=== PATIENT | female | born 1960 | race Caucasian/White ===

== ENCOUNTER 2016-03-28 15:46 | Observation (INO) | payer BC ==
[~2016-03-28] VITALS: Ht 165.1 cm; Wt 74.9 kg
[~2016-03-28 15:46] MED LIST: ADVAIR DISKU1 INH; ALBUTEROL SULFATE; AZITHROMYCIN250 MG PO; CEPHALEXIN500 MG PO; PROAIR HFA IN
--- NOTE | 2016-03-28 16:41 | DIAGNOSTIC IMAGING REPORT ---
PROCEDURE: XR CHEST 1 VIEW INDICATION: SHORTNESS OF BREATH TECHNIQUE: Portable AP view 04:10 p.m. COMPARISON: Chest 12/06/2015 and 02/23/2015 FINDINGS: There is mild chronic parenchymal scarring at the lung bases. Lungs otherwise clear. Heart and mediastinum are normal. Thorax is normal. IMPRESSION: 1. Negative chest.
--- NOTE | 2016-03-28 17:38 | ED ORDER SUMMARY ---
..... Patient: NNAMDI BILLINGSLEY OrderSheet [facility] VisitID: [id number] [place] [address] 55y, F Registration Date/Time: 03/28/2016 ORDER SHEET Weight: 77.1 kg (stated) Allergies: Allarest GENERAL ORDERS: Chest 1V Urgent (16:03 03/28/2016 EKoroleva P.A.-C) (Ack 16:25 RKaruga) (16:40 SReitz R.N.) Blood Culture (No) (N/A) Urgent (16:03 03/28/2016 EKoroleva P.A.-C) (Ack 16:26 RKaruga) (16:40 SReitz R.N.) Cardiac Panel Stat (16:04 03/28/2016 EKoroleva P.A.-C) (Ack 16:26 RKaruga) (16:40 SReitz R.N.) PCT (Procalcitonin) Urgent (16:04 03/28/2016 EKoroleva P.A.-C) (Ack 16:26 RKaruga) (16:40 SReitz R.N.) Lactate, Serum Urgent (16:04 03/28/2016 EKoroleva P.A.-C) (Ack 16:26 RKaruga) (16:44 SReitz R.N.) Belt Operator (Continuous) (16:04 03/28/2016 EKoroleva P.A.-C) (16:06 SReitz R.N.) Oxygen (4 L/min) (NC) (92-95%) (16:04 03/28/2016 EKoroleva P.A.-C) (16:06 SReitz R.N.) EKG - ER Stat (16:04 03/28/2016 EKoroleva P.A.-C) (16:21 SReitz R.N.) Rapid Influenza Screen (Nasal Pharyngeal) (n) Urgent (16:04 03/28/2016 EKoroleva P.A.-C) (16:06 SReitz R.N.) ABG (G) Urgent (16:42 03/28/2016 EKoroleva P.A.-C) (Ack 16:53 RKaruga) (17:17 RKaruga) MEDICATION ORDERS: Tylenol PO 1,000 mg (NOW) (16:14 03/28/2016 EKoroleva P.A.-C) (16:44 SReitz R.N.) DuoNeb Neb Tx 1 unit dose (NOW) (16:14 03/28/2016 EKoroleva P.A.-C) (16:22 RMcCarson) Albuterol Neb Tx 2.5 mg (NOW) (16:14 03/28/2016 EKoroleva P.A.-C) (16:22 RMcCarson) Ceftriaxone IM 250 mg (NOW) (18:18 03/28/2016 EKoroleva P.A.-C) (Ack 18:24 SReitz R.N.) (Cancelled: Other18:24 SReitz R.N.) Doxycycline Hyclate PO 100 mg (NOW) (18:18 03/28/2016 EKoroleva P.A.-C) (Ack 18:24 SReitz R.N.) (Cancelled: Other18:24 SReitz R.N.) IV FLUIDS: IV Saline Lock (16:04 03/28/2016 EKoroleva P.A.-C) (Ack 16:41 SReitz R.N.) IV NS : initial bolus 500 mL (1000 mL/hr), then 100 mL/hr for X1 (NOW); Reid (17:31 03/28/2016 EKoroleva P.A.-C) (17:33 SReitz R.N.) ORDER SHEET NOTES: [Electronically signed by Madison Gamino PDonA.-C (19:26 03/28/2016)] [Electronically signed by Maki Alvarado R.N. (00:00 03/29/2016)] [Electronically locked/signed by Maki Alvarado R.N. (00:00 03/29/2016)]
--- NOTE | 2016-03-28 17:38 | ED NURSING NOTES ---
Clinical Report - Nurses [facility] [address] 03/28/2016 15:47 Patient: NNAMDI BILLINGSLEY TRIAGE Triage time 15:52. Acuity: LEVEL 3. Chief Complaint: COUGH and FEVER and (pt states, " I think I have pneumonia, I have had it many times."). Alert. No acute distress. IVON COMA SCORE: [place] Coma Scale: 15- eyes open spontaneously (4); best verbal response- oriented x 4 (5); best motor response- obeys commands (6). --16:05 Maki Alvarado R.N. 15:51 03/28/16. BP: 145/62. HR: 135. RR: 24. O2 saturation: 68% on room air. Temp: 100.4 F. Pain level now 09/15. --16:05 Maki Alvarado R.N. Weight: 77.1 kg stated. Height/Length: 65 inches Per Patient. BMI: 28.3. --15:53 Maki Alvarado R.N. Medications Womens Multi Vitamin & Mineral Oral. --16:04 Maki Alvarado R.N. Singular. --16:04 Maki Alvarado R.N. ProAir HFA Inhalation. --16:04 Maki Alvarado R.N. Allergies Allarest. --16:04 Maki Alvarado R.N. History Arrived by private vehicle. Historian: patient. Accompanied by family. Primary physician (). Onset. (4 days ago continues to get worse). 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 PAST MEDICAL HX: Immunizations: up-to-date. SOCIAL HX: Current every day heavy tobacco smoker (cigarette)- less than 1 pack per day. No alcohol use or drug use. She has not traveled outside the [place] ABUSE ASSESSMENT: Abuse assessment: The patient was asked "Do you feel safe in your home?" and "Has anyone hurt you or threatened to hurt you?". No report of abuse. NUTRITIONAL RISK ASSESSMENT: The nutritional risk assessment revealed no deficiencies. FUNCTIONAL ASSESSMENT: Functional assessment: no impairments noted. LEARNING NEEDS ASSESSMENT: The learning needs assessment revealed no barriers. --16:05 Maki Alvarado R.N. PROBLEMS: Pneumonia. Lung Disease. COPD - Chronic Obstructive Pulmonary Disease. Lifestyle / Substance Problems. Asthma. --15:59 Maki Alvarado R.N. ADDITIONAL SURGERIES: Hysterectomy. Tonsillectomy. --16:05 Maki Alvarado R.N. Interventions ID band on patient. Transported via wheelchair. --16:05 Maki Alvarado R.N. PHYSICAL ASSESSMENT To room via wheelchair. GENERAL / NEURO / PSYCH: Alert. Appears in no acute distress. HEENT: Voice within normal limits. RESPIRATORY: Mild respiratory distress. CVS: Cardiac rhythm: sinus tachycardia. Capillary refill less than 2 seconds. SKIN: Skin is pale. Skin is dry. Skin is cool. --16:01 Maki Alvarado R.N. NURSING PROGRESS NOTES 15:55. Oxygen administered by nasal cannula at 4 liters. property assessment monitor, pulse oximeter and NIBP monitor placed on patient; athletic monitor- Lead II; monitor alarms on. Patient gowned. Head of bed elevated. Two patient identifiers checked. Call light placed in reach. Side rails up x 2. Bed placed in lowest position. Brakes of bed on. Patient ready for evaluation- chart flagged. --16:01 Maki Alvarado R.N. 16:03 03/28/2016 Site #1 started via IV in the left antecubital space with an 20g angiocath, with aseptic technique and good blood return; one attempt. Blood drawn: rainbow set and cultures. Labeled in the presence of the patient and sent to the lab. Saline lock flushed with 10 mL saline (accessed by PANDA Edgar). --16:03 Maki Alvarado R.N. ( RT notified for breathing treatment.). --16:03 Maki Alvarado R.N. 16:05 03/28/16. O2 saturation: 93% on nasal cannula at 6 liters/minute. --16:06 Maki Alvarado R.N. 16:22 03/28/2016 Duoneb (Ipratropium-Albuterol) Neb TX Nebulizer 1 unit dose given. --16:22 Saranya Armenta 16:22 03/28/2016 Albuterol Neb TX Nebulizer 1 unit dose given. --16:22 Saranya Armenta 16:44 03/28/2016 Tylenol (Acetaminophen) PO 1000 mg given. Allergies verified and confirmed 5 rights. --16:44 Maki Alvarado R.N. 16:45 03/28/16. BP: 145/62. HR: 128. RR: 18. O2 saturation: 94%. --16:45 Maki Alvarado R.N. Reassessment after medication administered. She has had no adverse reaction. Overall patient status- she states feels better. --16:45 Maki Alvarado R.N. Patient ID band checked for patient name, birthdate and medical record number: patient confirmed. Blood samples drawn from the left antecubital space peripheral IV site by nurse per protocol ; labeled in presence of the patient and sent to lab: gaspar top. Initial blood discarded and additional blood sent to lab. Line flushed with 10 mL normal saline post blood draw. --16:45 Maki Alvarado R.N. 16:57 03/28/16. BP: 125/53. --16:57 Maki Alvarado R.N. ( RT at the bedside for ABG draw). --16:57 Maki Alvarado R.N. 17:33 03/28/2016 Started bag #1 1000 mL IV Fluids IV NS (Saline); at 1000 mL/hr over 30 second(s) via site #1 via IV pump. Allergies verified and confirmed 5 rights. IV patency established. IV site checked: no pain, redness, or swelling. IV flushed thoroughly pre- and post-medication administration. --17:33 Maki Alvarado R.N. ( attempt to call report: [place] RN unavailable at this time will call back.). --18:55 Maki Alvarado R.N. EKG time: (3596). EKG was ordered, performed by a tech and shown to the ED physician. --23:43 Maki Alvarado R.N. DISPOSITION / DISCHARGE Admitted to Acute Care. Transported via stretcher by [employer] with O2. Report was given to a nurse via a phone call. Report included patient's care, treatment, medications, reviewed medication reconcilliation, and condition (including any recent changes or anticipated changes). All questions were answered. Patient's personal items; items were placed in belongings bag, given to the patient and transported with the patient. --19:51 Maki Alvarado R.N. 19:52 03/28/16. BP: 115/54. HR: 107 (regular and tachycardic). RR: 20. O2 saturation: 95%. Temp: 98.6 F. Pain level now: 05/16. --19:53 Maki Alvarado R.N. 19:53 03/28/2016 Site #[address] upon admission; patent, no pain and no signs of infiltration. Flushed with 10 mL saline; flushes easily. --19:53 Maki Alvarado R.N. Locked/Released at 03/29/2016 0:00 by Maki Alvarado R.N.
--- NOTE | 2016-03-28 17:38 | ED ORDER SUMMARY ---
..... Patient: NNAMDI BILLINGSLEY OrderSheet [facility] VisitID: [id number] [place] [address] 55y, F Registration Date/Time: 03/28/2016 ORDER SHEET Weight: 77.1 kg (stated) Allergies: Allarest GENERAL ORDERS: Chest 1V Urgent (16:03 03/28/2016 EKoroleva P.A.-C) (Ack 16:25 RKaruga) (16:40 SReitz R.N.) Blood Culture (No) (N/A) Urgent (16:03 03/28/2016 EKoroleva P.A.-C) (Ack 16:26 RKaruga) (16:40 SReitz R.N.) Cardiac Panel Stat (16:04 03/28/2016 EKoroleva P.A.-C) (Ack 16:26 RKaruga) (16:40 SReitz R.N.) PCT (Procalcitonin) Urgent (16:04 03/28/2016 EKoroleva P.A.-C) (Ack 16:26 RKaruga) (16:40 SReitz R.N.) Lactate, Serum Urgent (16:04 03/28/2016 EKoroleva P.A.-C) (Ack 16:26 RKaruga) (16:44 SReitz R.N.) Process Control Technician (Continuous) (16:04 03/28/2016 EKoroleva P.A.-C) (16:06 SReitz R.N.) Oxygen (4 L/min) (NC) (92-95%) (16:04 03/28/2016 EKoroleva P.A.-C) (16:06 SReitz R.N.) EKG - ER Stat (16:04 03/28/2016 EKoroleva P.A.-C) (16:21 SReitz R.N.) Rapid Influenza Screen (Nasal Pharyngeal) (n) Urgent (16:04 03/28/2016 EKoroleva P.A.-C) (16:06 SReitz R.N.) ABG (G) Urgent (16:42 03/28/2016 EKoroleva P.A.-C) (Ack 16:53 RKaruga) (17:17 RKaruga) MEDICATION ORDERS: Tylenol PO 1,000 mg (NOW) (16:14 03/28/2016 EKoroleva P.A.-C) (16:44 SReitz R.N.) DuoNeb Neb Tx 1 unit dose (NOW) (16:14 03/28/2016 EKoroleva P.A.-C) (16:22 RMcCarson) Albuterol Neb Tx 2.5 mg (NOW) (16:14 03/28/2016 EKoroleva P.A.-C) (16:22 RMcCarson) Ceftriaxone IM 250 mg (NOW) (18:18 03/28/2016 EKoroleva P.A.-C) (Ack 18:24 SReitz R.N.) (Cancelled: Other18:24 SReitz R.N.) Doxycycline Hyclate PO 100 mg (NOW) (18:18 03/28/2016 EKoroleva P.A.-C) (Ack 18:24 SReitz R.N.) (Cancelled: Other18:24 SReitz R.N.) IV FLUIDS: IV Saline Lock (16:04 03/28/2016 EKoroleva P.A.-C) (Ack 16:41 SReitz R.N.) IV NS : initial bolus 500 mL (1000 mL/hr), then 100 mL/hr for X1 (NOW); Reid (17:31 03/28/2016 EKoroleva P.A.-C) (17:33 SReitz R.N.) ORDER SHEET NOTES: [Electronically signed by Madison Gamino PDonA.-C (19:26 03/28/2016)] [Electronically signed by Maki Alvarado R.N. (00:00 03/29/2016)] [Electronically locked/signed by Maki Alvaraod R.N. (00:00 03/29/2016)]
--- NOTE | 2016-03-28 17:38 | ED NURSING NOTES ---
Clinical Report - Nurses [facility] [place] [address] 03/28/2016 15:47 Patient: NNAMDI BILLINGSLEY TRIAGE Triage time 15:52. Acuity: LEVEL 3. Chief Complaint: COUGH and FEVER and (pt states, " I think I have pneumonia, I have had it many times."). Alert. No acute distress. IVON COMA SCORE: [place] Coma Scale: 15- eyes open spontaneously (4); best verbal response- oriented x 4 (5); best motor response- obeys commands (6). --16:05 Maki Alvarado R.N. 15:51 03/28/16. BP: 145/62. HR: 135. RR: 24. O2 saturation: 68% on room air. Temp: 100.4 F. Pain level now 09/15. --16:05 Maki Alvarado R.N. Weight: 77.1 kg stated. Height/Length: 65 inches Per Patient. BMI: 28.3. --15:53 Maki Alvarado R.N. Medications Womens Multi Vitamin & Mineral Oral. --16:04 Maki Alvarado R.N. Singular. --16:04 Maki Alvarado R.N. ProAir HFA Inhalation. --16:04 Maki Alvarado R.N. Allergies Allarest. --16:04 Maki Alvarado R.N. History Arrived by private vehicle. Historian: patient. Accompanied by family. Primary physician (). Onset. (4 days ago continues to get worse). 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 PAST MEDICAL HX: Immunizations: up-to-date. SOCIAL HX: Current every day heavy tobacco smoker (cigarette)- less than 1 pack per day. No alcohol use or drug use. She has not traveled outside the [place] ABUSE ASSESSMENT: Abuse assessment: The patient was asked "Do you feel safe in your home?" and "Has anyone hurt you or threatened to hurt you?". No report of abuse. NUTRITIONAL RISK ASSESSMENT: The nutritional risk assessment revealed no deficiencies. FUNCTIONAL ASSESSMENT: Functional assessment: no impairments noted. LEARNING NEEDS ASSESSMENT: The learning needs assessment revealed no barriers. --16:05 Maki Alvarado R.N. PROBLEMS: Pneumonia. Lung Disease. COPD - Chronic Obstructive Pulmonary Disease. Lifestyle / Substance Problems. Asthma. --15:59 Maki Alvarado R.N. ADDITIONAL SURGERIES: Hysterectomy. Tonsillectomy. --16:05 Maki Alvarado R.N. Interventions ID band on patient. Transported via wheelchair. --16:05 Maki Alvarado R.N. PHYSICAL ASSESSMENT To room via wheelchair. GENERAL / NEURO / PSYCH: Alert. Appears in no acute distress. HEENT: Voice within normal limits. RESPIRATORY: Mild respiratory distress. CVS: Cardiac rhythm: sinus tachycardia. Capillary refill less than 2 seconds. SKIN: Skin is pale. Skin is dry. Skin is cool. --16:01 Maki Alvarado R.N. NURSING PROGRESS NOTES 15:55. Oxygen administered by nasal cannula at 4 liters. teletypesetter monitor, pulse oximeter and NIBP monitor placed on patient; teletypesetter monitor- Lead II; monitor alarms on. Patient gowned. Head of bed elevated. Two patient identifiers checked. Call light placed in reach. Side rails up x 2. Bed placed in lowest position. Brakes of bed on. Patient ready for evaluation- chart flagged. --16:01 Maki Alvarado R.N. 16:03 03/28/2016 Site #1 started via IV in the left antecubital space with an 20g angiocath, with aseptic technique and good blood return; one attempt. Blood drawn: rainbow set and cultures. Labeled in the presence of the patient and sent to the lab. Saline lock flushed with 10 mL saline (accessed by PANDA Edgar). --16:03 Maki Alvarado R.N. ( RT notified for breathing treatment.). --16:03 Maki Alvarado R.N. 16:05 03/28/16. O2 saturation: 93% on nasal cannula at 6 liters/minute. --16:06 Maki Alvarado R.N. 16:22 03/28/2016 Duoneb (Ipratropium-Albuterol) Neb TX Nebulizer 1 unit dose given. --16:22 Saranya Armenta 16:22 03/28/2016 Albuterol Neb TX Nebulizer 1 unit dose given. --16:22 Saranya Armenta 16:44 03/28/2016 Tylenol (Acetaminophen) PO 1000 mg given. Allergies verified and confirmed 5 rights. --16:44 Maki Alvarado R.N. 16:45 03/28/16. BP: 145/62. HR: 128. RR: 18. O2 saturation: 94%. --16:45 Maki Alvarado R.N. Reassessment after medication administered. She has had no adverse reaction. Overall patient status- she states feels better. --16:45 Maki Alvarado R.N. Patient ID band checked for patient name, birthdate and medical record number: patient confirmed. Blood samples drawn from the left antecubital space peripheral IV site by nurse per protocol ; labeled in presence of the patient and sent to lab: gaspar top. Initial blood discarded and additional blood sent to lab. Line flushed with 10 mL normal saline post blood draw. --16:45 Maki Alvarado R.N. 16:57 03/28/16. BP: 125/53. --16:57 Maki Alvarado R.N. ( RT at the bedside for ABG draw). --16:57 Maki Alvarado R.N. 17:33 03/28/2016 Started bag #1 1000 mL IV Fluids IV NS (Saline); at 1000 mL/hr over 30 second(s) via site #1 via IV pump. Allergies verified and confirmed 5 rights. IV patency established. IV site checked: no pain, redness, or swelling. IV flushed thoroughly pre- and post-medication administration. --17:33 Maki Alvarado R.N. ( attempt to call report: [place] RN unavailable at this time will call back.). --18:55 Maki Alvarado R.N. EKG time: (9926). EKG was ordered, performed by a tech and shown to the ED physician. --23:43 Maki Alvarado R.N. DISPOSITION / DISCHARGE Admitted to Acute Care. Transported via stretcher by [employer] with O2. Report was given to a nurse via a phone call. Report included patient's care, treatment, medications, reviewed medication reconcilliation, and condition (including any recent changes or anticipated changes). All questions were answered. Patient's personal items; items were placed in belongings bag, given to the patient and transported with the patient. --19:51 Maki Alvarado R.N. 19:52 03/28/16. BP: 115/54. HR: 107 (regular and tachycardic). RR: 20. O2 saturation: 95%. Temp: 98.6 F. Pain level now: 05/16. --19:53 Maki Alvarado R.N. 19:53 03/28/2016 Site #[address] upon admission; patent, no pain and no signs of infiltration. Flushed with 10 mL saline; flushes easily. --19:53 Maki Alvarado R.N. Locked/Released at 03/29/2016 0:00 by Maki Alvarado R.N.
--- NOTE | 2016-03-28 17:38 | ED CLINICAL REPORT ---
Clinical Report - Physicians/Mid Levels [facility] [address] [place] [address] 03/28/2016 15:47 Patient: NNAMDI BILLINGSLEY Time Seen: 16:14 Mar 28 2016. Arrived- By private vehicle. HISTORY OF PRESENT ILLNESS Chief Complaint: HISTORY OF CHRONIC OBSTRUCTIVE PULMONARY DISEASE. This started just prior to arrival and is still present. The dyspnea is described as mild. The patient has had a cough and fever. No sputum production or dizziness. She has had foot swelling (not new). (Patient reports history of severe asthma, smoking, on home oxygen at night only, 2 L over the last 3-4 days has been having worsening of her cough, nonproductive, fevers). Similar symptoms previously: REVIEW OF SYSTEMS The patient has not had weight loss. No muscle aches, nasal discharge, skin rash or enlarged lymph nodes. All systems otherwise negative, except as recorded above. PAST HISTORY Asthma out of advair. Problems: Pneumonia. Lung Disease. COPD - Chronic Obstructive Pulmonary Disease. Lifestyle / Substance Problems. Additional Surgeries: Hysterectomy. Tonsillectomy. Medications: ProAir HFA Inhalation. Singular. Womens Multi Vitamin & Mineral Oral. Allergies: Allarest. SOCIAL HISTORY Smoker- current status unknown. No alcohol use or drug use. ADDITIONAL NOTES The nursing notes have been reviewed. PHYSICAL EXAM Vital Signs: 03/28/2016 15:51 BP: 145/62. HR: 135. RR: 24. O2 saturation: 68%. Temp: 100.4 F. Appearance: Alert. No acute distress. ENT: Nose normal. Pharynx normal. Neck: Normal inspection. No jugular venous distention. CVS: Tachycardia. Heart sounds normal. Respiratory: Respiratory distress. Decreased air movement. Wheezing present. Back: Normal inspection. LABS, X-RAYS, AND EKG EKG: EKG time: (1616). No acute process. No acute ischemia. Rate: 120. Tachycardia. Normal P waves. Normal BANDAR. Normal QRS complex. Normal axis. sinsu tach with pac. Changes present when compared to prior EKG. (01/17, new pac). Chest X-ray: (IMPRESSION: 1. Negative chest. Electronically Final signed by:Calin Russell MD 03/28/2016 4:44:45 PM). Laboratory Tests: CBC w Diff: (TELMA: 03/28/2016 16:00) ( [facility] 03/28/2016 16:22) Final results Test Result Flag Units (Reference) WHITE BLOOD COUNT 10.1 K/uL (4.5-11.5) RED BLOOD COUNT 5.88 H M/uL (4.00-5.20) HEMOGLOBIN 16.0 gm/dL (12.0-16.0) HEMATOCRIT 50.5 H % (36.0-46.0) MEAN CELL VOLUME 86 fL (80-100) MEAN CORPUSCULAR HGB 27 pg (26-34) MEAN CORPUSCULAR HGB CONC 32 g/dL (31-37) RED CELL DISTRIBUTION WIDTH 16.5 H % (11.6-14.8) PLATELET COUNT 198 K/uL (150-400) NEUTROPHIL % 88.7 H % (50-75) LYMPH % 6.5 L % (25-40) MONO % 4.4 % (3-14) EOSINOPHIL % 0.2 % (0-4) BASOPHIL % 0.2 % (0-2) Lactate, Serum: (TELMA: 03/28/2016 16:50) ( [facility] 03/28/2016 17:27) Final results Test Result Flag Units (Reference) LACTIC ACID 1.0 mmol/L (0.4-2.0) [id number]: (TELMA: 03/28/2016 16:00) ( [facility] 03/28/2016 17:07) Final results Test Result Flag Units (Reference) PROCALCITONIN <0.5 ng/mL (0-0.5) PCT Concentration: Interpretation : Risk/option for action PCT <=0.5 ng/mL : Systemic : Low risk forinfection(sepsis): progression to severeis not likely. : systemic infection.Local bacterial : CAUTION-PCT levelsinfection is : below 0.5 ng/mL do notpossible. : exclude an infection,because localizedinfections (withoutsystemic signs) may beassociated with suchlow levels. If PCT ismeasured very earlyafter a bacterialchallenge (usually <6hours), these valuesmay still be low. Inthis case PCT shouldbe re-assessed 6-24hours later. PCT >0.5 and : Systemic infection: Moderate risk for<= 2 ng/mL : (sepsis) is : progression to severepossible, but : systemic infection.other conditions : The patient should beare known to : closely monitoredelevate PCT. : both clinically andby re-assessing PCTwithin 6-24 hours. PCT > 2 ng/mL : Systemic infection: High risk for(sepsis) is likely: progression to severeunless other : systemic infection.causes are known. : PCT >= 10 ng/mL : Important systemic: High likelihood ofinflammatory : severe sepsis orresponse, almost : septic shock.exclusively due to:severe bacterial :sepsis or septic :shock. : CHEM 13 PANEL: (TELMA: 03/28/2016 16:00) ( MsgRcvd 03/28/2016 17:49) Final results Test Result Flag Units (Reference) GLUCOSE 121 H mg/dL (70-110) BUN 8 mg/dL (7-18) CREATININE 0.8 mg/dL (0.6-1.3) Estimated GFR >60 mL/min Estimated GFR- >60 mL/min Note: Persistent reduction over 3 months in eGFR<60 mL/min/1.73 m2 defines CKD. Patients with eGFR values>=60 mL/min/1.73 m2 may also have CKD if evidence ofpersistent proteinuria. Additional information may be foundat www.kidney.org. SODIUM 136 mmol/L (136-145) POTASSIUM 4.2 mmol/L (3.5-5.1) CHLORIDE 96 L mmol/L (98-107) CARBON DIOXIDE 33 H mmol/L (21-32) CALCIUM 8.8 mg/dL (8.5-10.1) TOTAL PROTEIN 8.0 g/dL (6.4-8.2) ALBUMIN 3.4 g/dL (3.3-5.0) BILIRUBIN, TOTAL 0.5 mg/dL (0.0-1.0) ALKALINE PHOSPHATASE 83 U/L (46-116) AST (SGOT) 18 U/L (15-37) ALT (SGPT) 22 U/L (12-78) MAGNESIUM 2.0 mg/dL (1.8-2.4) CPK 129 U/L (24-260) TROPONIN I <0.05 ng/mL (0.00-1.5) TROPONIN REFERENCE RANGE:<0.1 NEGATIVE0.1-1.5 INDETERMINANT>1.5 POSITIVE ABG: (TELMA: 03/28/2016 16:42) ( MsgRcvd 03/28/2016 17:18) Final results Test Result Flag Units (Reference) FIO2 0.40 L % (20-101) ABG MODE OF DELIVERY NC MODIFIED ELZBIETA TEST POSITIVE? YES LITERS PER MIN. 5 L/MIN (0-20) ABG PATIENT RESP RATE 20 /MIN ARTERIAL BLOOD GAS SITE LR ARTERIAL BLOOD GAS pH 7.40 (7.35-7.45) ABG PCO2 54.6 H mmHg (35-45) ABG PO2 63.3 L mmHg (80.0-100.0) ABG BASE EXCESS 8.1 *H mmol/L (-6.0--6.0) ABG HCO3 34.0 *H mmol/L (20.0-26.0) ABG TCO2 35.7 *H mmol/L (24.0-30.0) ABG TxPvB1a 151.0 H mmHg (7.0-14.0) *NOTE: Normal rangeis based on aFIO2 of 21% ABG SAT O2 92.8 L % (95.1-100.0) ABG TOTAL HEMOGLOBIN 14.8 g/dL (12.0-16.0) ABG O2 HEMOGLOBIN 87.4 L % (95.0-100.0) ABG CARBOXYHEMOGLOBIN 5.8 H % (0.5-1.5) ABG METHEMOGLOBIN 0.0 L % (0.4-1.5) ABG RHEMOGLOBIN 6.8 % Rapid Influenza Screen: (TELMA: 03/28/2016 16:00) ( MsgRcvd 03/28/2016 16:40) Final results SPECIMEN DESCRIPTION: N Test Result Flag Units (Reference) RAPID INFLUENZA SCREEN DATE: 03/28/16 INFLUENZA A: NEGATIVE SCREEN FOR INFLUENZA A INFLUENZA B: NEGATIVE SCREEN FOR INFLUENZA B RAPID INFLUENZA NEGATIVE FOR "A" "B". . PROGRESS AND PROCEDURES Course of Care: Here in the ER patient with hypoxia upon arrival, does wear at home oxygen, however on the nature reports. She has continued to smoke. Patient here with diffuse wheezing. Patient with fever. Chest x-ray unremarkable, CBC G unremarkable, ABG unremarkable. The troponin and lactic acid are negative. He's discussed with Dr. Hu, who will admit the patient. Dr. Hu here in the ER at 1800 to see patient. 03/28/2016 17:46 Temp: 99.8 F. 03/28/2016 16:57 BP: 125/53. 03/28/2016 16:45 BP: 145/62. HR: 128. RR: 18. O2 saturation: 94%. 03/28/2016 16:05 O2 saturation: 93%. 03/28/2016 15:51 BP: 145/62. HR: 135. RR: 24. O2 saturation: 68%. Temp: 100.4 F. Patient is stable. Physical exam findings are improved. Symptoms better. Patient/family counseled. Disposition: Admitted. CLINICAL IMPRESSION Acute exacerbation of COPD. (Electronically signed by Madison Gamino P.A.-C 03/28/2016 19:26)
--- NOTE | 2016-03-28 18:40 | Progress Note ---
Subjective General Full note dictated: Ran out of asthma meds around 5 days ago. Couldn't get in for appt today when called in this am and so went to ER for SOB. Is sob, weak and now states will quit smoking. Has hypoxia and compensatd respiratory failure on her ABG Admit: O2 NC, asthma meds. ? d/c tomorrow.
--- NOTE | 2016-03-28 20:02 | HISTORY AND PHYSICAL ---
ADMITTED: 03/28/2016 CHIEF COMPLAINT: 1. Shortness of breath, asthma flare HISTORY OF PRESENT ILLNESS: The patient states that she ran out of her asthma medications about 5 days ago, started having increased shortness of breath and wheezing and could not breathe well, so she tried to get into an appointment today at the office, was able to do this and so went to the emergency department for further evaluation. In the emergency department, workup included checking for oxygen levels and chest x-ray. Chest x- ray was normal, and her oxygen levels were very low. A decision was made for admission and for observation and she is now on oxygen here and feeling better. MEDICAL/SURGICAL HISTORY: Past medical history: She has had chronic asthma, COPD issues. She normally has oxygen at home, but she only uses it at night. She has had tobacco use that is chronic, a cough that is chronic, and COPD issues as well. 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 MEDICATIONS: 1. Singulair 10 mg p.o. daily. 2. ProAir 2 puffs q.4 hours p.r.n. 3. Hydrochlorothiazide 25 mg p.o. daily. 4. Advair 250/50 one puff b.i.d. ALLERGIES: 1. CHANTIX. 2. FLOVENT. 3. ALIRESP. 4. LEVAQUIN. 5. SULFA. SOCIAL HISTORY: She is . She is employed, works at [employer]. She smokes every day, has quit off and on, usually is about 3/4 pack per day. Denies alcohol or drug use. FAMILY HISTORY: Aunt had colon cancer. She has multiple grandchildren with asthma. REVIEW OF SYSTEMS: She has been short of breath, weak. She is having some coughing. No fevers. No nausea, vomiting. She has had some issues of weakness. PHYSICAL EXAMINATION: GENERAL: She is an alert female who is talking in full sentences, is sitting up in no distress. VITAL SIGNS: Her blood pressure is 145/62, heart rate of 135, respirations 24, saturating 68% on room air, temperature 100.4, and pain was 7-10 scale with breathing. HEENT: Extraocular movements intact. Pupils equal, round, reactive to light. Oropharynx is with moist mucous membranes and dentures. NECK: Supple without lymphadenopathy. LUNGS: With coarse breath sounds bilaterally and some wheezes. HEART: Regular rate and rhythm. ABDOMEN: Soft, it is nontender, nondistended, and obese. GENITOURINARY: Deferred. RECTAL: Deferred. BREASTS: Deferred. NEUROLOGIC: Cranial nerves II-XII are intact. Strength and sensation are grossly intact. LAB/IMAGING: Her white count is 10.1, hematocrit of 50.5, platelets of 198,000. Comprehensive metabolic panel: Glucose 121, BUN of 8, creatinine 0.8, sodium 136 , potassium 4.2, chloride of 96, carbon dioxide 33, magnesium 2.0, calcium 8.8, total protein 8.0. Albumin 3.4, total bili 0.5, alk phos 83, AST of 18, ALT of 22. CPK 129. Troponin I less than 0.05. Procalcitonin less than 0.5. Flu screen was negative for influenza A and B. ABG: shows a pH of 7.40, pCO2 54.6, pO2 63. Her lactic acid is 1.0. Chest x-ray was no acute process. EKG: Shows tachycardia with nonspecific ST changes and artifact, sinus. IMPRESSION: 1. This is a 55-year-old female with longstanding tobacco use. 2. Respiratory failure with elevated pCO2 that is chronic and hypoxia that is likely chronic as she has a pH of 7.40. PLAN: She ran out of her asthma medications and she is now going to be restarted on those and treated with oxygen nasal cannula. We will monitor her. She is going to likely need oxygen 24 hours a day. She has got some laboratory abnormalities with the respiratory failure on the ABG, also with the elevated carbon dioxide level. Also, she has elevated hematocrit, which is likely polycythemia secondary to her chronic hypoxia and lung issues. The patient states she is going to quit smoking for real this time and that she is also going to be consistent with her medications and will be moving towards 24-hour a day oxygen. Anticipate that she will be improved and then ready for discharge in 1-2 days. She has oxygen at home and will start to wear it in the daytime as well and potentially night. May need further evaluation on sleep apnea in the future as she states that she has had normal oxygen in the daytime and low oxygen at night.
[2016-03-28 20:11] VITALS: BP 123/65
[2016-03-28] MEDS ORDERED: SINGULAIR10 M1 PO (21:43)
[2016-03-28] MEDS ORDERED: ADVAIR DISKU1 INH (21:43)
[2016-03-28] MEDS ORDERED: MULTIVITAMIN GUMMIES (21:46)
[2016-03-28] MEDS ORDERED: PROAIR HFA IN (21:49)
[2016-03-28] MEDS ORDERED: ABILIFY5 MG PO (21:50)
[2016-03-28 23:09] VITALS: BP 114/64
--- NOTE | 2016-03-29 00:01 | ED MAR SUMMARY ---
..... Medication Administration Record [facility] [address] [place] [address] Patient: NNAMDI BILLINGSLEY Visit ID: [id number] 55y, F Weight: 77.1 kg Height/Length: 65 in BMI: 28.3 ALLERGIES: Allarest Given 16:22 03/28/2016 Saranya Armenta, Medication Administered: DUONEB [NEB TX] (IPRATROPIUM-ALBUTEROL), Dose: 1 unit dose Nebulizer Neb TX. Medication Ordered: DuoNeb Neb Tx 1 unit dose (NOW). Given 16:22 03/28/2016 Saranya Armenta, Medication Administered: ALBUTEROL [NEB TX], Dose: 1 unit dose Nebulizer Neb TX. Medication Ordered: Albuterol Neb Tx 2.5 mg (NOW). Given 16:44 03/28/2016 Maki Alvarado R.N. Medication Administered: TYLENOL [PO] (ACETAMINOPHEN), Dose: 1000 mg PO. Medication Ordered: Tylenol PO 1,000 mg (NOW). Start 17:33 03/28/2016 Maki Alvarado, RDonNDon Medication Administered: IV NS (SALINE), Dose: IV Fluids over 30 second(s), Rate: 1000 mL/hr, Dispensed: 1000 mL bag, Site: [facility]. Medication Ordered: IV NS : initial bolus 500 mL (1000 mL/hr), then 100 mL/hr for X1 (NOW); Reid.
--- NOTE | 2016-03-29 00:01 | ED DISCHARGE INSTRUCTIONS ---
Patient: NNAMDI BILLINGSLEY General Instructions [facility] VisitID: [id number] [address] [place] [address] 55y, F Registration Date/Time: 03/28/2016 Acute exacerbation of COPD. (Electronically signed by Madison Gamino P.A.-C 03/28/2016 19:26)
--- NOTE | 2016-03-29 00:01 | ED DISCHARGE INSTRUCTIONS ---
Patient: NNAMDI BILLINGSLEY General Instructions [facility] VisitID: [id number] [address] [place] [address] 55y, F Registration Date/Time: 03/28/2016 Acute exacerbation of COPD. (Electronically signed by Madison Gamino P.A.-C 03/28/2016 19:26)
--- NOTE | 2016-03-29 00:01 | ED MAR SUMMARY ---
..... Medication Administration Record [facility] [address] [place] [address] Patient: NNAMDI BILLINGSLEY Visit ID: [id number] 55y, F Weight: 77.1 kg Height/Length: 65 in BMI: 28.3 ALLERGIES: Allarest Given 16:22 03/28/2016 Saranya Armenta, Medication Administered: DUONEB [NEB TX] (IPRATROPIUM-ALBUTEROL), Dose: 1 unit dose Nebulizer Neb TX. Medication Ordered: DuoNeb Neb Tx 1 unit dose (NOW). Given 16:22 03/28/2016 Saranya Armenta, Medication Administered: ALBUTEROL [NEB TX], Dose: 1 unit dose Nebulizer Neb TX. Medication Ordered: Albuterol Neb Tx 2.5 mg (NOW). Given 16:44 03/28/2016 Maki Alvarado R.N. Medication Administered: TYLENOL [PO] (ACETAMINOPHEN), Dose: 1000 mg PO. Medication Ordered: Tylenol PO 1,000 mg (NOW). Start 17:33 03/28/2016 Maki Alvarado, RDonNDon Medication Administered: IV NS (SALINE), Dose: IV Fluids over 30 second(s), Rate: 1000 mL/hr, Dispensed: 1000 mL bag, Site: #[facility]. Medication Ordered: IV NS : initial bolus 500 mL (1000 mL/hr), then 100 mL/hr for X1 (NOW); Reid.
--- NOTE | 2016-03-29 00:02 | ED MED RECONCILIATION SUMMARY ---
Patient: NNAMDI BILLINGSLEY Medication Reconciliation Report [facility] VisitID: [id number] [place] [address] 55y, F Registration Date/Time: 03/28/2016 Weight: 77.1 kg Height/Length: 65 in. BMI: 28.3 ALLERGIES: Allarest The patient's Home Medications are listed below: THE FOLLOWING MEDICATIONS NEED TO BE RECONCILED: ProAir HFA Inhalation Singular Womens Multi Vitamin & Mineral Oral The source(s) of the original Home Medication information: Not obtained. The following Medications were given to the patient in the Emergency Department: Duoneb [Neb Tx] Neb TX 1 unit dose, administered: 03/28/2016 4:22:00 PM Albuterol [Neb Tx] Neb TX 1 unit dose, administered: 03/28/2016 4:22:00 PM Tylenol [PO] PO 1000 mg, administered: 03/28/2016 4:44:00 PM IV NS IV Fluids bolus 0, then 1000 mL/hr, administered: 03/28/2016 5:33:00 PM The following Medications were prescribed to the patient: None.
--- NOTE | 2016-03-29 00:02 | ED MED RECONCILIATION SUMMARY ---
Patient: NNAMDI BILLINGSLEY Medication Reconciliation Report [facility] VisitID: [id number] [place] [address] 55y, F Registration Date/Time: 03/28/2016 Weight: 77.1 kg Height/Length: 65 in. BMI: 28.3 ALLERGIES: Allarest The patient's Home Medications are listed below: THE FOLLOWING MEDICATIONS NEED TO BE RECONCILED: ProAir HFA Inhalation Singular Womens Multi Vitamin & Mineral Oral The source(s) of the original Home Medication information: Not obtained. The following Medications were given to the patient in the Emergency Department: Duoneb [Neb Tx] Neb TX 1 unit dose, administered: 03/28/2016 4:22:00 PM Albuterol [Neb Tx] Neb TX 1 unit dose, administered: 03/28/2016 4:22:00 PM Tylenol [PO] PO 1000 mg, administered: 03/28/2016 4:44:00 PM IV NS IV Fluids bolus 0, then 1000 mL/hr, administered: 03/28/2016 5:33:00 PM The following Medications were prescribed to the patient: None.
[2016-03-29 02:03] VITALS: BP 132/77
[2016-03-29 06:56] VITALS: BP 119/74
[2016-03-29] MEDS ORDERED: ALBUTEROL SUL0.083 % IN (08:37)
[2016-03-29] MEDS ORDERED: SPIRIVA18 MCG IN (08:43)
[2016-03-29] MEDS ORDERED: AZITHROMYCIN500 MG PO (08:43)
[2016-03-29] MEDS ORDERED: CEPHALEXIN500 MG PO (08:46)
--- NOTE | 2016-03-29 08:48 | Provider's Discharge Care Plan ---
Problem, Goal, Plan Problem List 1. COPD exacerbation Goals: Improve disease control Instructions: Take meds as directed, Stop smoking, Use home oxygen continuously 2. Hypoxia Goals: Improved health/wellness Instructions: Stop smoking, Use home oxygen continuously
--- NOTE | 2016-03-29 23:59 | DISCHARGE SUMMARY ---
ADMIT DATE: 03/28/2016 DISCHARGE DATE: 03/29/2016 ADMITTING DIAGNOSES: 1. Chronic obstructive pulmonary disease exacerbation secondary to cessation of medications 2. Tobacco abuse 3. History of asthma DISCHARGE DIAGNOSES: 1. BRIEF HISTORY: The patient presented with increased shortness of breath having run out of medications about 5 days prior to admission. HOSPITAL COURSE: The patient was admitted and treated with oxygen supplementation and restarted on her usual medications with good results. She felt like she was about "shelter better" by the morning following admission and requested discharge home. She continues to require oxygen, but has oxygen at home and wishes to continue with that. Additionally, it was discussed with her the possibility of using empiric antibiotics, although chest x-ray showed no infection, as exacerbation could be partially also due to concomitant infection. She agreed and requested antibiotics. DISCHARGE INSTRUCTIONS/MEDICATIONS: Disposition: Home. Discharge medications: Cephalexin 500 mg p.o. q.i.d., azithromycin 500 mg daily x3 days, Spiriva 1 capsule inhaled through inhaling device once daily, nebulized albuterol 2.5 mg q.i.d., ProAir puffer 2 puffs q.i.d. p.r.n., Advair Diskus 1 puff b.i.d., montelukast 10 mg p.o. daily, multivitamin 1 p.o. daily. Special instructions: Light activity at home. Anticipate gradually improving lung function over the next week. Continue medications regularly and check in regularly in the office to avoid running out of medication. Smoking cessation recommended. The patient counseled extensively regarding smoking cessation. She will use a nicotine patch, which she has at home.
== END 2016-03-29 09:30 | disposition home or self-care (01) ==
LOC: ED SRH 15:46 → TRANS SRH 18:04 → ACUTE3 SRH 20:11
PROVIDERS: ADMIT Family Medicine
PROC: 3E0234Z Introduction of Serum, Toxoid and Vaccine into Muscle, Percutaneous Approach (ICD-10-PCS; principal; 2016-03-29)
DX: J44.1 Chronic obstructive pulmonary disease with (acute) exacerbation (principal); J45.901 Unspecified asthma with (acute) exacerbation; T48.6X6A Underdosing of antiasthmatics, initial encounter; J96.11 Chronic respiratory failure with hypoxia; Z91.128 Patient's intentional underdosing of medication regimen for other reason; F17.210 Nicotine dependence, cigarettes, uncomplicated; Z99.81 Dependence on supplemental oxygen; Z23 Encounter for immunization
CPT/HCPCS: 29247; 90065; 90100; 90616; 91400; 92031; 92610; 92720; 93004; 95059

== ENCOUNTER 2016-07-21 11:46 | Outpatient (CLI) | payer BC ==
[~2016-07-21 11:46] MED LIST changes: +ABILIFY5 MG PO; +ALBUTEROL SUL0.083 % IN; +AZITHROMYCIN500 MG PO; +MULTIVITAMIN GUMMIES; +SINGULAIR10 M1 PO; +SPIRIVA18 MCG IN
--- NOTE | 2016-07-21 12:22 | DIAGNOSTIC IMAGING REPORT ---
PROCEDURE: XR SHOULDER 2 OR MORE VW-RIGHT INDICATION: R SHOULDER IMPINGEMENT SYNDROME TECHNIQUE: Three views. COMPARISON: None. FINDINGS: Osseous structures and joint spaces are normal. IMPRESSION: 1. Normal right shoulder.
== END 2016-07-21 23:00 ==
LOC: XR SRH 11:46
DX: M75.41 Impingement syndrome of right shoulder (principal)